=== PATIENT | male | born 1995 | race Two or more races ===

== ENCOUNTER 2023-02-17 11:51 | Emergency (ER) | payer MEDICAID, OTHER ==
[~2023-02-17] VITALS: Ht 172.7 cm; Wt 108.0 kg
[2023-02-17] MEDS ORDERED: methylPREDNISolone SOD SUCC 125 MG/2 ML VL IM ONE (13:15)
[2023-02-17] MEDS ORDERED: cefTRIAXone SOD 1,000 MG VL IM ONE (13:15)
[2023-02-17 13:21] VITALS: BP 135/90
[2023-02-17] MEDS ORDERED: PRED20TA2 PO ×3 (14:02→14:03)
== END 2023-02-17 14:00 | disposition home or self-care (01) ==
LOC: ER 11:51
DX: J03.90 Acute tonsillitis, unspecified (principal)
CPT/HCPCS: 96372; 99284; J0696; J2930